=== PATIENT | female | born 1960 | race Caucasian/White ===

== ENCOUNTER 2016-04-29 13:42 | Emergency (ER) | payer MEDICARE, OTHER ==
[2016-04-29] MEDS ORDERED: METOCLOPRAMIDE HCL 5 MG/ML 2ML VIAL ONE (14:25)
[2016-04-29] MEDS ORDERED: DIPHENHYDRAMINE HCL 50 MG/1 ML VIAL ONE (14:25)
[2016-04-29] MEDS ORDERED: MAALOX/LIDO2%VISC/SIMETHICONE 40 ML BOT ONE (14:25)
[2016-04-29] MEDS ORDERED: LACTATED RINGERS 1,000 ML ONE (14:26)
[2016-04-29 14:37] LABS: BASO % 0.3 % (0.2-1.0); EOS # 0.1 (0.0-0.5); EOS % 1.2 % (0.9-2.9); HEMATOCRIT 41.7 % (37.0-47.0); HEMOGLOBIN 13.6 gm/l (12.0-16.0); IMM NEUT% 0.3 % (0-1); LYMPH # 2.4 (1.0-4.8); LYMPH % 35.3 % (15-45); MEAN CELL VOLUME 89.5 fl (81.0-99.0); MEAN CORPUSCULAR HEMOGLOBIN 29.2 pg (27.0-31.0); MEAN CORPUSCULAR HGB CONC 32.6 g/dl (33.0-37.0); MEAN PLATELET VOLUME 9.7 fl (7.4-10.4); MONO # 0.3 (0.0-0.8); NEUT % 58.9 % (43-75); PLATELET COUNT 240 K/mm3 (130-400); RED CELL DISTRIBUTION WIDTH 12.3 % (11.5-14.5)
[2016-04-29 14:47] LABS: ALB/GLOB RATIO 1.2 (>1.0); ALBUMIN 3.7 gm/dL (3.5-5.7)
--- NOTE | 2016-04-29 14:50 | CT ---
Exam: CT head without contrast COMPARISON: None INDICATION: Headache TECHNIQUE: CT examination of the head was obtained without contrast. FINDINGS: There is no acute intracranial hemorrhage. There is no abnormal intra or extra-axial fluid collection. There is no edema, mass effect or midline shift. Ventricles are normal in size. The visualized paranasal sinuses and mastoid air cells are well aerated. IMPRESSION: No acute intracranial abnormality. Report was uploaded to the EMR at 1446 hours 04/29/2016.
== END 2016-04-29 15:49 | disposition home or self-care (01) ==
LOC: ED 13:42
DX: G43.909 Migraine, unspecified, not intractable, without status migrainosus (principal); K21.9 Gastro-esophageal reflux disease without esophagitis; R07.9 Chest pain, unspecified; R11.2 Nausea with vomiting, unspecified; I10 Essential (primary) hypertension
CPT/HCPCS: 85025; 80053; 84484; 70450; 96375; 99284 ×2; 96374; 96361; 93005; J1200; A9270; J2765; J7120